=== PATIENT | female | born 1995 | race Caucasian/White ===

== ENCOUNTER 2017-05-08 23:11 | Emergency (ER) | payer OTHER ==
[2017-05-08 23:17] VITALS: BP 120/64; PULSE 109; TEMP 98.4; BMI 21.6
[2017-05-09] MEDS ORDERED: NAPROXEN 500 MG TABLET (FP) PO ONE (00:02)
--- NOTE | 2017-05-09 00:06 | PDOC ---
History of Present Illness - General History Source: Patient Exam Limitations: No Limitations - History of Present Illness Initial Comments: 05/09/17 00:08 Patient is a 21 year old female with no significant past medical history who presents to the ED with complaints of left sided chest pain that began 30 minutes before ED arrival. Patient reports being at work when she felt the left sided chest pain, describing it as a a tugging on her heart. Patient states the left sided chest pain is a localized non radiating pain that she has never experienced before. She reports experiencing this pain intermittently until coming into the ED. Patient reports the left sided chest pain is felt with inspiration. Denies any family cardiac history. Denies nausea, vomiting. Denies SOB. Denies any other symptoms. Allergies: None. Social history: None Surgical history: None PMD: Dr. Hernandez <Chaparro Rhodes - Last Filed: 05/09/17 00:08> - General History Source: Patient Exam Limitations: No Limitations <Bennie Mcgee - Last Filed: 05/09/17 00:27> - General Chief Complaint: Pain Stated Complaint: CHEST PAIN Time Seen by Provider: 05/08/17 23:46 Past History <Chaparro Rhodes - Last Filed: 05/09/17 00:08> - Past Medical History Other medical history: denies - Suicide/Smoking/Psychosocial Hx Smoking History: Never smoked <Bennie Mcgee - Last Filed: 05/09/17 00:27> - Past Medical History Allergies/Adverse Reactions: Allergies Allergy/AdvReac Type Severity Reaction Status Date / Time No Known Allergies Allergy Verified 05/08/17 23:16 Home Medications: Ambulatory Orders Naproxen [Naprosyn -] 500 mg PO BID PRN #14 tablet 05/09/17 Review of Systems - Review of Systems Able to Perform ROS?: Yes Comments:: 05/09/17 00:08 GENERAL/CONSTITUTIONAL: No fever or chills. No weakness. HEAD, EYES, EARS, NOSE AND THROAT: No change in vision. No ear pain or discharge. No sore throat. CARDIOVASCULAR: +Left sided chest pain. No shortness of breath. RESPIRATORY: No cough, wheezing, or hemoptysis. GASTROINTESTINAL: No nausea, vomiting, diarrhea or constipation. GENITOURINARY: No dysuria, frequency, or change in urination. MUSCULOSKELETAL: No joint or muscle swelling or pain. No neck or back pain. SKIN: No rash NEUROLOGIC: No headache, vertigo, loss of consciousness, or change in strength/ sensation. ENDOCRINE: No increased thirst. No abnormal weight change. HEMATOLOGIC/LYMPHATIC: No anemia, easy bleeding, or history of blood clots. ALLERGIC/IMMUNOLOGIC: No hives or skin allergy. All Other Systems: Reviewed and Negative <Chaparro Rhodes - Last Filed: 05/09/17 00:08> *Physical Exam - Vital Signs Last Vital Signs Temp Pulse Resp BP Pulse Ox 98.4 F 109 H 20 120/64 99 05/08/17 23:14 05/08/17 23:14 05/08/17 23:14 05/08/17 23:14 05/08/17 23:14 - Physical Exam Comments: 05/09/17 00:08 GENERAL: Awake, alert, and fully oriented, in no acute distress HEAD: No signs of trauma EYES: PERRLA, EOMI, sclera anicteric, conjunctiva clear ENT: Auricles normal inspection, hearing grossly normal, nares patent, oropharynx clear without exudates. Moist mucosa NECK: Normal ROM, supple, no lymphadenopathy, JVD, or masses LUNGS: Breath sounds equal, clear to auscultation bilaterally. No wheezes, and no crackles HEART: Regular rate and rhythm, normal S1 and S2, no murmurs, rubs or gallops CHEST: +Focal point tenderness to palpation with producible left upper chest pain. ABDOMEN: Soft, nontender, normoactive bowel sounds. No guarding, no rebound. No masses EXTREMITIES: Normal range of motion, no edema. No clubbing or cyanosis. No cords, erythema, or tenderness NEUROLOGICAL: Cranial nerves II through XII grossly intact. Normal speech, normal gait SKIN: Warm, Dry, normal turgor, no rashes or lesions noted. <Chaparro Rhodes - Last Filed: 05/09/17 00:08> - Vital Signs Last Vital Signs Temp Pulse Resp BP Pulse Ox 98.4 F 109 H 20 120/64 99 05/08/17 23:14 05/08/17 23:14 05/08/17 23:14 05/08/17 23:14 05/08/17 23:14 <Bennie Mcgee - Last Filed: 05/09/17 00:27> Heart Score/ECG Review #1 ECG reviewed & interpreted by me at: 00:05 05/09/17 00:24 NSR 88, TWI V2, III, no std/manny, normal axis, normal intervals, QTC 408 msec <Bennie Mcgee - Last Filed: 05/09/17 00:27> Medical Decision Making - Medical Decision Making 05/09/17 00:04 A portion of this note was documented by scribe services under my direction. I have reviewed the details of the note, within reason, and agree with the documentation with the following case summary and management plan written by me. Patient treated in the ED. Nursing notes are reviewed and incorporated into the medical decision-making. Vital signs reviewed. Vital Signs Temp Pulse Resp BP Pulse Ox 98.4 F 109 H 20 120/64 99 05/08/17 23:14 05/08/17 23:14 05/08/17 23:14 05/08/17 23:14 05/08/17 23:14 21-year-old female with no past medical history presents with atypical chest pain. The patient was doing well until approximately late evening. She started feeling these intermittent 1-2 seconds of left chest spasms with no radiation or shortness of breath. Denies diaphoresis or vomiting. First time episode and the patient came to the ED. Patient does go to the gym and exercise. The patient denies history of pulmonary embolisms and does not take oral conscious at the pills or smoke. The patient has point tenderness in the left upper chest. I suspect that this is likely muscle spasm. We'll obtain EKG and if normal, we'll discharge with naproxen. 05/09/17 00:24 ECG is unremarkable. I discussed the physical exam findings, ancillary test results and final diagnoses with the patient. I answered all of the patient's questions. The patient was satisfied with the care received and felt comfortable with the discharge plan and treatment plan. The patient will call their primary care physician within 24 hours to arrange follow-up and will return to the Emergency Department with any new, persistant or worsening symptoms. <Bennie Mcgee - Last Filed: 05/09/17 00:27> *DC/Admit/Observation/Transfer - Attestations Scribe Attestion: 05/09/17 00:08 Documentation prepared by Chaparro Meagan, acting as emergency medical service coordinator for Bennie Mcgee MD, /DO. <Chaparro Rhodes - Last Filed: 05/09/17 00:08> - Discharge Dispostion Admit: No <Bennie Mcgee - Last Filed: 05/09/17 00:27> Diagnosis at time of Disposition: Atypical chest pain - Discharge Dispostion Disposition: HOME Condition at time of disposition: Stable - Prescriptions Prescriptions: Naproxen [Naprosyn -] 500 mg PO BID PRN #14 tablet PRN Reason: Pain - Referrals Referrals: STAFF,NOT ON [Primary Care Provider] - - Patient Instructions Printed Discharge Instructions: DI for Atypical Chest Pain, DI for Musculoskeletal Pain Additional Instructions: Take 500 mg of naproxen every 12 hours needed for pain. Please follow up with your doctor.
[2017-05-09] MEDS ORDERED: NAPROXEN 500 MG TABLET (FP) ONE (00:34)
--- NOTE | 2017-05-09 13:00 | EKG ---
Test Reason : Blood Pressure : / mmHG Vent. Rate : 088 BPM Atrial Rate : 088 BPM P-R Int : 124 ms QRS Dur : 082 ms QT Int : 338 ms P-R-T Axes : 041 055 029 degrees QTc Int : 408 ms NORMAL SINUS RHYTHM NONSPECIFIC T WAVE ABNORMALITY ABNORMAL ECG NO PREVIOUS ECGS AVAILABLE Confirmed by MONALISA ELDER MD ([id number]) on 05/09/2017 12:59:33 PM Referred By: Confirmed By:MONALISA ELDER MD
== END 2017-05-09 00:38 | disposition home or self-care (01) ==
LOC: JER 23:11
DX: R07.89 Other chest pain (principal)
CPT/HCPCS: 93005; 93010; 99281-25

== ENCOUNTER 2019-02-21 16:40 | Emergency (ER) | payer OTHER ==
[2019-02-21] MEDS ORDERED: ONDANSETRON *ODT* 4 MG TABLET SL ONE ×2 (16:51→16:53)
[2019-02-21] MEDS ORDERED: ONDANSETRON *ODT* 4 MG TABLET ONE (16:51)
--- NOTE | 2019-02-21 16:56 | PDOC ---
Rapid Medical Evaluation Chief Complaint: Nausea/Vomiting Time Seen by Provider: 02/21/19 16:54 Medical Evaluation: Allergies Allergy/AdvReac Type Severity Reaction Status Date / Time No Known Allergies Allergy Verified 05/08/17 23:16 02/21/19 16:54 I have performed a brief in-person evaluation of this patient. The patient presents with a chief complaint of: nausea and vomiting since this Am after drinking lot of alcohol last night. report unable to keep anything down today. Also report epigastric pain. report has eric and multiple Tequila shots last night but does not know how much she had Pertinent physical exam findings: Patient vomiting in waiting area I have ordered the following:zofran,IV insert. pepcid, banana bag The patient will proceed to the ED for further evaluation Discharge Disposition - Diagnosis Alcohol abuse Nausea & vomiting Qualifiers: Vomiting type: unspecified Vomiting Intractability: non-intractable Qualified Code(s): R11.2 - Nausea with vomiting, unspecified - Discharge Dispostion Condition at time of disposition: Stable - Referrals - Patient Instructions - Post Discharge Activity
[2019-02-21] MEDS ORDERED: FOLIC ACID INJECTION - 1 MG, THIAMINE HCL 100 MG, MULTIVIT INJECTION ADULT 10 ML in SOD... IVPB ONE (17:24)
[2019-02-21] MEDS ORDERED: FAMOTIDINE 20 MG/50 ML IVPB 20 MG/50 ML MG IVPB ONE (17:26)
[2019-02-21 17:27] VITALS: BMI 22.4
--- NOTE | 2019-02-21 19:25 | PDOC ---
*Physical Exam - Vital Signs Last Vital Signs Temp Pulse Resp BP Pulse Ox 109 H 24 H 128/79 98 02/21/19 17:23 02/21/19 17:23 02/21/19 17:23 02/21/19 17:23 ED Treatment Course - Medications Given in the ED: ED Medications Discontinued Medications Generic Name Dose Route Start Last Admin Trade Name Konstantin PRN Reason Stop Dose Admin Ondansetron HCl 4 mg 02/21/19 16:51 02/21/19 16:53 Zofran Odt - SL 02/21/19 16:52 4 mg ONCE ONE Administration Ondansetron HCl 8 mg 02/21/19 16:53 02/21/19 16:53 Zofran Odt - SL 02/21/19 16:54 4 mg ONCE ONE Administration Medical Decision Making - Medical Decision Making 02/21/19 19:25 Patient seen by the advanced practice provider under my direct supervision. Ancillary testing reviewed as necessary. I agree with plan as outlined by the advanced practice provider. *DC/Admit/Observation/Transfer Diagnosis at time of Disposition: Alcohol abuse Nausea & vomiting Qualifiers: Vomiting type: unspecified Vomiting Intractability: non-intractable Qualified Code(s): R11.2 - Nausea with vomiting, unspecified - Discharge Dispostion Disposition: HOME Condition at time of disposition: Stable - Referrals Referrals: Arely Pineda DO [Primary Care Provider] - - Patient Instructions Printed Discharge Instructions: DI for Vomiting -- Adult Additional Instructions: drink plenty of fluids including gatorade start a BRAT ( bananas, rice apples toast) follow up with your doctor return to the ER if symptoms worsen Additional Instructions: * Please call your personal physician to report your Emergency Department visit and to report your progress, if any. * If there is no improvement in symptoms in 2 days call your physician. * Return to the Emergency Department for any worsening symptoms. - Post Discharge Activity Forms/Work/School Notes: Back to Work
[2019-02-21] MEDS ORDERED: RANITIDINE HCL 150 MG TABLET (FP) PO ONE (20:01)
[2019-02-21] MEDS ORDERED: MAG HYDROX/AL HYDROX/SIMETH 30 ML UNIT-DOSE CUP PO ONE (20:01)
--- NOTE | 2019-02-21 20:02 | PDOC ---
History of Present Illness - General Chief Complaint: Nausea/Vomiting Stated Complaint: VOMITTING/NAUSEA Time Seen by Provider: 02/21/19 16:54 History Source: Patient - History of Present Illness Initial Comments: 02/21/19 19:57 23 year old female reports drinking heavily last night at 10 pm wine and tequila woke up this morning with nausea,/ vomiting, epigastric pain, sweating. patient in the waiting ate ice and zofran . now feels a lot better/ No pmhx 02/21/19 19:59 Past History - Past Medical History Allergies/Adverse Reactions: Allergies Allergy/AdvReac Type Severity Reaction Status Date / Time No Known Allergies Allergy Verified 02/21/19 17:26 - Suicide/Smoking/Psychosocial Hx Smoking History: Unknown if ever smoked Review of Systems - Review of Systems Able to Perform ROS?: Yes Is the patient limited [place] proficient: No Constitutional: No: Symptoms Reported, See HPI, Chills, Diaphoresis, Fever, Loss of Appetite, Malaise, Night Sweats, Weakness, Weight Stable, Unintentional Wgt. Loss, Unexplained wgt Loss, Other HEENTM: No: Symptoms Reported, See HPI, Eye Pain, Blurred Vision, Tearing, Recent change in vision, Double Vision, Cataracts, Ear Pain, Ocular Prothesis, Ear Discharge, Nose Pain, Nose Congestion, Tinnitus, Nose Bleeding, Hearing Loss , Throat Pain, Throat Swelling, Mouth Pain, Dental Problems, Difficulty Swallowing, Mouth Swelling, Other Respiratory: No: Symptoms reported, See HPI, Cough, Orthopnea, Shortness of Breath, SOB with Exertion, SOB at Rest, Stridor, Wheezing, Productive cough, Hemoptysis, Other Cardiac (ROS): No: Symptoms Reported, See HPI, Chest Pain, Edema, Irregular Heart Rate, Lightheadedness, Palpitations, Syncope, Chest Tightness, Other ABD/GI: Yes: Nausea, Vomiting, Abdominal cramping : No: Symptoms Reported, See HPI, Burning, Dysuria, Discharge, Frequency, Flank Pain, Hematuria, Incontinence, Pain, Urgency, Testicular Mass, Testicular Swelling, Lesions, Testicular Pain, Other Musculoskeletal: No: Symptoms Reported, See HPI, Back Pain, Gout, Joint Pain, Joint Swelling, Muscle Pain, Muscle Weakness, Neck Pain, Joint Stiffness, Other *Physical Exam - Vital Signs Last Vital Signs Temp Pulse Resp BP Pulse Ox 109 H 24 H 128/79 98 02/21/19 17:23 02/21/19 17:23 02/21/19 17:23 02/21/19 17:23 - Physical Exam General Appearance: Yes: Appropriately Dressed Respiratory/Chest: positive: Lungs Clear, Normal Breath Sounds Cardiovascular: positive: Regular Rate. negative: Tachycardia Gastrointestinal/Abdominal: positive: Normal Bowel Sounds, Tender (mild epigastric tenderness), Soft Extremity: positive: Normal Capillary Refill, Normal Inspection, Normal Range of Motion Integumentary: positive: Normal Color, Dry, Warm Neurologic: positive: Fully Oriented, Alert, Normal Mood/Affect ED Treatment Course - Medications Given in the ED: ED Medications Discontinued Medications Generic Name Dose Route Start Last Admin Trade Name Freq PRN Reason Stop Dose Admin Ondansetron HCl 4 mg 02/21/19 16:51 02/21/19 16:53 Zofran Odt - SL 02/21/19 16:52 4 mg ONCE ONE Administration Ondansetron HCl 8 mg 02/21/19 16:53 02/21/19 16:53 Zofran Odt - SL 02/21/19 16:54 4 mg ONCE ONE Administration Progress Note - Progress Note Progress Note: A: alcohol abuse; nausea / vomiting P: ua urine zofran maalox zantac Medical Decision Making - Medical Decision Making 02/21/19 21:05 patient tolerated PO water . no episodes of vomiting 02/21/19 21:05 02/21/19 21:28 patient is tolerating oral hydration in the ED> UA + 3 ketones. advised to continue oral hydration at home. *DC/Admit/Observation/Transfer Diagnosis at time of Disposition: Alcohol abuse Nausea & vomiting Qualifiers: Vomiting type: unspecified Vomiting Intractability: non-intractable Qualified Code(s): R11.2 - Nausea with vomiting, unspecified - Discharge Dispostion Disposition: HOME Condition at time of disposition: Stable - Referrals Referrals: Arely Pineda DO [Primary Care Provider] - - Patient Instructions Printed Discharge Instructions: DI for Vomiting -- Adult Additional Instructions: drink plenty of fluids including gatorade start a BRAT ( bananas, rice apples toast) follow up with your doctor return to the ER if symptoms worsen Additional Instructions: * Please call your personal physician to report your Emergency Department visit and to report your progress, if any. * If there is no improvement in symptoms in 2 days call your physician. * Return to the Emergency Department for any worsening symptoms. - Post Discharge Activity Forms/Work/School Notes: Back to Work
[2019-02-21] MEDS ORDERED: MAG HYDROX/AL HYDROX/SIMETH 30 ML UNIT-DOSE CUP ONE ×2 (20:15→21:15)
[2019-02-21] MEDS ORDERED: RANITIDINE HCL 150 MG TABLET (FP) ONE ×2 (20:15→21:15)
[2019-02-21 21:14] LABS: EPI CELLS 3.5 /HPF (0-5/HPF); HYALINE CASTS 19 /lpf (0-8); PH,URINE >= 9.0 (5.0-8.0); URINE APPEARANCE CLEAR; URINE BACTERIA 28.1 /hpf (NEGATIVE); URINE BILIRUBIN NEGATIVE (NEGATIVE); URINE COLOR YELLOW; URINE GLUCOSE (UA) NEGATIVE (NEGATIVE); URINE KETONE 3+ (NEGATIVE); URINE LEUK ESTERASE NEGATIVE (NEGATIVE); URINE NITRITE NEGATIVE (NEGATIVE); URINE PROTEIN 1+ (NEGATIVE); URINE WBC 1 /hpf (0-5)
[2019-02-21 21:41] LABS: URINE RBC 0 /hpf (0-4)
[2019-02-21 22:04] VITALS: BP 102/59; PULSE 90; TEMP 98.5
== END 2019-02-21 21:55 | disposition home or self-care (01) ==
LOC: JER 16:40
DX: F10.10 Alcohol abuse, uncomplicated (principal); R10.13 Epigastric pain; R11.2 Nausea with vomiting, unspecified
CPT/HCPCS: 81003; 84703; 99282-25; J7030; Q0162